=== PATIENT | female | born 1945 | race Hispanic/Latino ===

== ENCOUNTER 2020-10-12 19:59 | Inpatient (IN) | payer MEDICARE ==
[~2020-10-12] VITALS: Ht 165.1 cm; Wt 74.8 kg
[2020-10-12 20:38] LABS: BASOPHILS % 0.3 % (0.0-1.0); EOSINOPHILS # (AUTO) 0.2 (0.0-0.4); EOSINOPHILS % 2.8 % (0.0-6.0); HEMATOCRIT 29.2 % (34.2-44.1); HEMOGLOBIN 9.9 g/dL (12.0-16.0); LYMPHOCYTES # (AUTO) 0.7 (1.0-3.2); LYMPHOCYTES % 11.2 % (18.0-39.1); MEAN CORPUSCULAR HEMOGLOBIN 31.5 pg (28-32); MEAN CORPUSCULAR HGB CONC 33.9 g/dL (31-35); MONOCYTES # (AUTO) 0.7 (0.2-0.8); MONOCYTES % 10.9 % (4.4-11.3); NEUTROPHILS # (AUTO) 4.4 (2.1-6.9); NEUTROPHILS % 72.5 % (38.7-80.0); PLATELET COUNT 146 x10e3/uL (140-360); RED BLOOD COUNT 3.14 x10e6/uL (3.6-5.1); RED CELL DISTRIBUTION WIDTH 12.5 % (11.7-14.4)
[2020-10-12 20:55] LABS: ALBUMIN 3.1 g/dL (3.5-5.0); ANION GAP 13.4 mmol/L (8-16); CALCIUM 8.2 mg/dL (8.4-10.2); CREATININE, SERUM 1.26 mg/dL (0.57-1.11); POTASSIUM 4.4 mmol/L (3.5-5.1)
[2020-10-12 21:00] LABS: CREATINE KINASE MB 1.6 ng/mL (0-5.0)
[2020-10-12] MEDS ORDERED: SODIUM CHLORIDE 0.9% 1000ML 1,000 ML IV SCH ×2 (21:15→21:30)
[2020-10-12] MEDS ORDERED: SODIUM CHLORIDE 0.9% 50ML 50 ML ONE (21:28)
[2020-10-12] MEDS ORDERED: IOPAMIDOL 370 MG/ML 200 ML INFUS..BTL INJ ONE (21:28)
[2020-10-12] MEDS ORDERED: DEXTROSE 50% SYRINGE 50 ML IV PRN (22:00)
[2020-10-12 22:29] LABS: CLARITY,URINE CLEAR (CLEAR); COLOR,URINE YELLOW (YELLOW); LEUKOCYTE ESTERASE ,URINE NEGATIVE (NEGATIVE); NITRITE,URINE NEGATIVE (NEGATIVE)
[2020-10-12 22:30] LABS: KETONES,URINE 1+ (NEGATIVE); PROTEIN,URINE DIPSTICK NEGATIVE (NEGATIVE); URINE UROBILINOGEN 0.2 mg/dL (0.2 - 1)
[2020-10-12 22:37] LABS: BACTERIA,URINE FEW /HPF; EPITHELIAL CELLS,URINE MODERATE /LPF; RBC,URINE 0-5 /HPF (0-5)
[2020-10-12 23:30] VITALS: BP 149/66
[2020-10-13] VITALS (8 sets, daily range): BP systolic 137–150; BP diastolic 56–66
[2020-10-13] MEDS ORDERED: LIPITOR10 MG PO (00:36)
[2020-10-13] MEDS ORDERED: NIFEDIPINE ER30 M1 PO (00:36)
[2020-10-13] MEDS ORDERED: PANTOPRAZOLE SO40 MG PO (00:36)
[2020-10-13] MEDS ORDERED: BENICAR20 MG PO (00:36)
[2020-10-13] MEDS ORDERED: CARAFATE1 GM/10 ML PO (00:36)
[2020-10-13] MEDS ORDERED: NEOMYCIN SULFA500 MG PO (00:36)
[2020-10-13] MEDS ORDERED: CARAFATE1 GM PO (00:36)
[2020-10-13] MEDS ORDERED: KEFLEX125 MG/5 M PO (00:36)
[2020-10-13] MEDS ORDERED: OLMESARTAN-HCT1 EAC2 PO (00:39)
[2020-10-13 04:48] LABS: BASOPHILS % 0.5 % (0.0-1.0); EOSINOPHILS # (AUTO) 0.3 (0.0-0.4); EOSINOPHILS % 3.9 % (0.0-6.0); HEMOGLOBIN 10.2 g/dL (12.0-16.0); LYMPHOCYTES # (AUTO) 0.9 (1.0-3.2); LYMPHOCYTES % 13.8 % (18.0-39.1); MEAN CORPUSCULAR HEMOGLOBIN 31.7 pg (28-32); MEAN CORPUSCULAR VOLUME 93.2 fL (81-99); MONOCYTES # (AUTO) 0.7 (0.2-0.8); MONOCYTES % 10.4 % (4.4-11.3); NEUTROPHILS # (AUTO) 4.6 (2.1-6.9); NEUTROPHILS % 69.1 % (38.7-80.0); PLATELET COUNT 142 x10e3/uL (140-360); RED BLOOD COUNT 3.22 x10e6/uL (3.6-5.1); RED CELL DISTRIBUTION WIDTH 12.3 % (11.7-14.4)
[2020-10-13 05:12] LABS: ANION GAP 12.3 mmol/L (8-16); CALCIUM 8.2 mg/dL (8.4-10.2); CREATININE, SERUM 0.94 mg/dL (0.57-1.11); POTASSIUM 4.3 mmol/L (3.5-5.1)
[2020-10-13 05:37] LABS: CREATINE KINASE MB 1.6 ng/mL (0-5.0)
[2020-10-13] MEDS: INSULIN REGULAR, HUMAN 100 UNIT/1 ML SQ SCH ×2 (07:30→12:30)
[2020-10-13 08:32] LABS: ANION GAP 12.2 mmol/L (8-16); CALCIUM 8.4 mg/dL (8.4-10.2); CREATININE, SERUM 0.9 mg/dL (0.57-1.11); POTASSIUM 4.2 mmol/L (3.5-5.1)
[2020-10-13 08:55] LABS: THYROID STIMULATING HORMONE 2.621 uIU/mL (0.350-4.940)
[2020-10-13 14:47] LABS: CREATINE KINASE MB 1.3 ng/mL (0-5.0)
[2020-10-13] MEDS ORDERED: HUMULIN-R100 UNITS/ SQ (15:19)
[2020-10-13 16:30] LABS: ANION GAP 12.3 mmol/L (8-16); CALCIUM 8.2 mg/dL (8.4-10.2); CREATININE, SERUM 0.91 mg/dL (0.57-1.11); POTASSIUM 4.3 mmol/L (3.5-5.1)
[2020-10-13] MEDS: INSULIN LISPRO 100 UNIT/1 ML 3ML VIAL SQ SCH ×2 (16:30→21:00)
[2020-10-13] MEDS: OLMESARTAN 20 MG TAB PO SCH (17:30)
[2020-10-13] MEDS: SODIUM CHLORIDE 1 GM TAB PO SCH (17:30)
[2020-10-13] MEDS: NIFEDIPINE CR 30 MG TAB PO SCH (17:30)
[2020-10-13] MEDS: ATORVASTATIN 20 MG TAB PO SCH (21:00)
[2020-10-13] MEDS: ENOXAPARIN SOD INJ 40 MG/0.4 ML SYR SC SCH (21:00)
[2020-10-14] VITALS (8 sets, daily range): BP systolic 107–133; BP diastolic 46–58
[2020-10-14 05:01] LABS: BASOPHILS % 0.3 % (0.0-1.0); EOSINOPHILS # (AUTO) 0.4 (0.0-0.4); EOSINOPHILS % 6.9 % (0.0-6.0); HEMATOCRIT 27.1 % (34.2-44.1); HEMOGLOBIN 9.1 g/dL (12.0-16.0); LYMPHOCYTES # (AUTO) 1.3 (1.0-3.2); LYMPHOCYTES % 20.5 % (18.0-39.1); MEAN CORPUSCULAR HEMOGLOBIN 31.4 pg (28-32); MEAN CORPUSCULAR HGB CONC 33.6 g/dL (31-35); MEAN CORPUSCULAR VOLUME 93.4 fL (81-99); MONOCYTES # (AUTO) 0.7 (0.2-0.8); MONOCYTES % 11.1 % (4.4-11.3); NEUTROPHILS # (AUTO) 3.5 (2.1-6.9); NEUTROPHILS % 57.8 % (38.7-80.0); PLATELET COUNT 148 x10e3/uL (140-360); RED CELL DISTRIBUTION WIDTH 12.7 % (11.7-14.4)
[2020-10-14 05:21] LABS: ANION GAP 11.4 mmol/L (8-16); CALCIUM 8.3 mg/dL (8.4-10.2); CREATININE, SERUM 0.85 mg/dL (0.57-1.11); POTASSIUM 4.4 mmol/L (3.5-5.1)
[2020-10-14] MEDS: INSULIN LISPRO 100 UNIT/1 ML 3ML VIAL SQ SCH ×4 (08:17→20:08)
[2020-10-14] MEDS: SODIUM CHLORIDE 1 GM TAB PO SCH ×2 (08:38→16:53)
[2020-10-14] MEDS: NIFEDIPINE CR 30 MG TAB PO SCH (08:38)
[2020-10-14] MEDS: OLMESARTAN 20 MG TAB PO SCH (08:40)
[2020-10-14] MEDS ORDERED: LACTULOSE SYRUP 20 GM/30 ML UDC PO PRN (14:30)
[2020-10-14] MEDS ORDERED: LACTULOSE SYRUP 20 GM/30 ML UDC PO ONE (15:00)
[2020-10-14] MEDS: ENOXAPARIN SOD INJ 40 MG/0.4 ML SYR SC SCH (16:53)
[2020-10-14] MEDS: ATORVASTATIN 20 MG TAB PO SCH (20:08)
[2020-10-15] VITALS (8 sets, daily range): BP systolic 115–136; BP diastolic 40–67
[2020-10-15 05:43] LABS: ANION GAP 11.4 mmol/L (8-16); CALCIUM 8.1 mg/dL (8.4-10.2); CREATININE, SERUM 0.8 mg/dL (0.57-1.11); POTASSIUM 4.4 mmol/L (3.5-5.1)
[2020-10-15] MEDS: INSULIN LISPRO 100 UNIT/1 ML 3ML VIAL SQ SCH ×4 (07:30→20:20)
[2020-10-15] MEDS: NIFEDIPINE CR 30 MG TAB PO SCH (08:17)
[2020-10-15] MEDS: SODIUM CHLORIDE 1 GM TAB PO SCH ×2 (08:17→17:53)
[2020-10-15] MEDS: OLMESARTAN 20 MG TAB PO SCH (08:17)
[2020-10-15] MEDS ORDERED: BISACODYL 5 MG TAB EC PO PRN (09:45)
[2020-10-15 09:47] LABS: MAGNESIUM 1.2 MG/DL (1.3-2.1)
[2020-10-15] MEDS: CIPROFLOXACIN 250 MG TAB PO SCH ×2 (10:27→17:53)
[2020-10-15] MEDS ORDERED: MAGNESIUM SULFATE 2GM/50ML 50 ML IV ONE (11:00)
[2020-10-15] MEDS ORDERED: SODIUM CHLORIDE 0.9% 250ML 250 ML ONE (11:05)
[2020-10-15] MEDS ORDERED: BISACODYL 5 MG TAB EC PO ONE (11:30)
[2020-10-15] MEDS: ENOXAPARIN SOD INJ 40 MG/0.4 ML SYR SC SCH (17:53)
[2020-10-15] MEDS ORDERED: CITRATE OF MAGNESIA 300ML BOTTLE PO ONE (18:30)
[2020-10-15] MEDS: ATORVASTATIN 20 MG TAB PO SCH (21:05)
[2020-10-16] VITALS (8 sets, daily range): BP systolic 118–131; BP diastolic 50–54
[2020-10-16 05:57] LABS: ANION GAP 14.8 mmol/L (8-16); CREATININE, SERUM 0.89 mg/dL (0.57-1.11); POTASSIUM 4.8 mmol/L (3.5-5.1)
[2020-10-16] MEDS: INSULIN LISPRO 100 UNIT/1 ML 3ML VIAL SQ SCH ×4 (07:30→21:00)
[2020-10-16] MEDS: NIFEDIPINE CR 30 MG TAB PO SCH (08:22)
[2020-10-16] MEDS: SODIUM CHLORIDE 1 GM TAB PO SCH ×2 (08:22→17:50)
[2020-10-16] MEDS: CIPROFLOXACIN 250 MG TAB PO SCH ×2 (08:22→17:50)
[2020-10-16] MEDS: OLMESARTAN 20 MG TAB PO SCH (08:22)
[2020-10-16] MEDS ORDERED: BISACODYL 10 MG SUPP PR PRN (10:00)
[2020-10-16] MEDS: SODIUM BICARBONATE 650 MG TAB PO SCH (17:50)
[2020-10-16] MEDS: ENOXAPARIN SOD INJ 40 MG/0.4 ML SYR SC SCH (17:51)
[2020-10-16] MEDS: ATORVASTATIN 20 MG TAB PO SCH (21:30)
[2020-10-17] VITALS (9 sets, daily range): BP systolic 102–136; BP diastolic 45–84
[2020-10-17 06:09] LABS: ANION GAP 11.6 mmol/L (8-16); CALCIUM 8.2 mg/dL (8.4-10.2); CREATININE, SERUM 1.17 mg/dL (0.57-1.11); MAGNESIUM 1.8 MG/DL (1.3-2.1); PHOSPHORUS 3.4 MG/DL (2.3-4.7); POTASSIUM 4.6 mmol/L (3.5-5.1)
[2020-10-17] MEDS: INSULIN LISPRO 100 UNIT/1 ML 3ML VIAL SQ SCH ×4 (07:30→20:50)
[2020-10-17] MEDS: OLMESARTAN 20 MG TAB PO SCH (10:13)
[2020-10-17] MEDS: CIPROFLOXACIN 250 MG TAB PO SCH ×2 (10:14→16:58)
[2020-10-17] MEDS: NIFEDIPINE CR 30 MG TAB PO SCH (10:14)
[2020-10-17] MEDS: SODIUM BICARBONATE 650 MG TAB PO SCH ×2 (10:15→16:58)
[2020-10-17] MEDS: SODIUM CHLORIDE 1 GM TAB PO SCH ×2 (10:15→16:58)
[2020-10-17] MEDS: ENOXAPARIN SOD INJ 40 MG/0.4 ML SYR SC SCH (16:58)
[2020-10-17] MEDS: ATORVASTATIN 20 MG TAB PO SCH (20:47)
[2020-10-18 05:06] VITALS: BP 131/55
[2020-10-18 06:22] LABS: ANION GAP 12.7 mmol/L (8-16); CALCIUM 8.3 mg/dL (8.4-10.2); CREATININE, SERUM 1.08 mg/dL (0.57-1.11); POTASSIUM 4.7 mmol/L (3.5-5.1)
[2020-10-18] MEDS: INSULIN LISPRO 100 UNIT/1 ML 3ML VIAL SQ SCH ×3 (07:30→16:03)
[2020-10-18 07:41] VITALS: BP 135/52
[2020-10-18 07:50] VITALS: BP 135/52
[2020-10-18] MEDS: CIPROFLOXACIN 250 MG TAB PO SCH (08:38)
[2020-10-18] MEDS: OLMESARTAN 20 MG TAB PO SCH (08:38)
[2020-10-18] MEDS: NIFEDIPINE CR 30 MG TAB PO SCH (08:39)
[2020-10-18] MEDS: SODIUM BICARBONATE 650 MG TAB PO SCH ×2 (08:39→16:25)
[2020-10-18] MEDS: SODIUM CHLORIDE 1 GM TAB PO SCH ×2 (08:39→16:25)
[2020-10-18] MEDS ORDERED: MEROPENEM 500 MG in SODIUM CHLORIDE 0.9% 50ML 50 ML IV SCH (12:00)
[2020-10-18 16:23] VITALS: BP 117/52
[2020-10-18] MEDS: ENOXAPARIN SOD INJ 40 MG/0.4 ML SYR SC SCH (16:25)
== END 2020-10-18 18:07 | disposition home or self-care (01) | DRG 682 ==
LOC: ER 20:12 → ERHOLD 21:51 → MED/SURG 23:31
PROVIDERS: ADMIT Internal Medicine; ATTEND Internal Medicine
DX: N17.9 Acute kidney failure, unspecified (principal); G93.41 Metabolic encephalopathy; E87.1 Hypo-osmolality and hyponatremia; N39.0 Urinary tract infection, site not specified; I10 Essential (primary) hypertension; E11.9 Type 2 diabetes mellitus without complications; E78.5 Hyperlipidemia, unspecified; Z88.8 Allergy status to other drugs, medicaments and biological substances; R33.9 Retention of urine, unspecified; R53.81 Other malaise; E83.42 Hypomagnesemia; K59.00 Constipation, unspecified; B96.5 Pseudomonas (aeruginosa) (mallei) (pseudomallei) as the cause of diseases classified elsewhere
CPT/HCPCS: 36415; 70450; 74177; 80048; 80053; 81001; 82550; 82553; 82948; 83735; 83880; 83935; 84100; 84295; 84300; 84443; 84484; 85025; 87086; 87186; 93005; 97139; 99284; J1650; J1817; J2185; J3475; J7030; J7050; Q9967

== ENCOUNTER 2020-11-04 15:45 | Inpatient (IN) | payer MEDICARE, OTHER ==
[~2020-11-04] VITALS: Ht 154.9 cm; Wt 61.2 kg
[~2020-11-04 15:45] MED LIST: BENICAR20 MG PO; CARAFATE1 GM PO; CARAFATE1 GM/10 ML PO; HUMULIN-R100 UNITS/ SQ; KEFLEX125 MG/5 M PO; LIPITOR10 MG PO; NEOMYCIN SULFA500 MG PO; NIFEDIPINE ER30 M1 PO; OLMESARTAN-HCT1 EAC2 PO; PANTOPRAZOLE SO40 MG PO
[2020-11-04] MEDS ORDERED: ONDANSETRON HCL INJ 2MG/ML 2ML 2 MG/ML VIAL IV NR (16:00)
[2020-11-04] MEDS ORDERED: SODIUM CHLORIDE 0.9% 1000ML 1,000 ML IV STA (16:00)
[2020-11-04 16:29] LABS: BASOPHILS % 0.1 % (0.0-1.0); EOSINOPHILS % 0.3 % (0.0-6.0); HEMATOCRIT 30.2 % (34.2-44.1); HEMOGLOBIN 10.5 g/dL (12.0-16.0); LYMPHOCYTES # (AUTO) 1.7 (1.0-3.2); MEAN CORPUSCULAR HEMOGLOBIN 31.1 pg (28-32); MEAN CORPUSCULAR HGB CONC 34.8 g/dL (31-35); MEAN CORPUSCULAR VOLUME 89.3 fL (81-99); MONOCYTES % 9.8 % (4.4-11.3); NEUTROPHILS # (AUTO) 7.3 (2.1-6.9); NEUTROPHILS % 71.6 % (38.7-80.0); PLATELET COUNT 255 x10e3/uL (140-360); RED BLOOD COUNT 3.38 x10e6/uL (3.6-5.1); RED CELL DISTRIBUTION WIDTH 12.1 % (11.7-14.4)
[2020-11-04 16:46] LABS: ALBUMIN 3.5 g/dL (3.5-5.0); ALBUMIN/GLOBULIN RATIO 1.2 (0.8-2.0); ANION GAP 16.1 mmol/L (8-16); CALCIUM 7.6 mg/dL (8.4-10.2); CREATININE, SERUM 1.3 mg/dL (0.57-1.11); POTASSIUM 3.1 mmol/L (3.5-5.1)
[2020-11-04 16:53] LABS: CREATINE KINASE MB 0.9 ng/mL (0-5.0)
[2020-11-04 16:59] LABS: MAGNESIUM 1.1 MG/DL (1.3-2.1)
[2020-11-04] MEDS ORDERED: MAGNESIUM SULFATE 2GM/50ML 50 ML IV ONE (17:00)
[2020-11-04] MEDS ORDERED: POTASSIUM CHLORIDE 20 MEQ TAB CR PO STA (17:00)
[2020-11-04] MEDS ORDERED: SODIUM CHLORIDE 0.9% 1000ML 1,000 ML IV SCH (19:30)
[2020-11-04 20:00] VITALS: BP 130/58
[2020-11-04] MEDS ORDERED: ACETAMINOPHEN 325 MG TAB PO PRN (23:00)
[2020-11-04] MEDS ORDERED: ONDANSETRON HCL INJ 2MG/ML 2ML 2 MG/ML VIAL IV PRN (23:00)
[2020-11-05] VITALS (8 sets, daily range): BP systolic 101–142; BP diastolic 35–64
[2020-11-05 05:42] LABS: BASOPHILS % 0.1 % (0.0-1.0); EOSINOPHILS # (AUTO) 0.1 (0.0-0.4); EOSINOPHILS % 0.7 % (0.0-6.0); HEMATOCRIT 26.1 % (34.2-44.1); HEMOGLOBIN 9.2 g/dL (12.0-16.0); LYMPHOCYTES # (AUTO) 1.9 (1.0-3.2); LYMPHOCYTES % 21.9 % (18.0-39.1); MEAN CORPUSCULAR HEMOGLOBIN 31.6 pg (28-32); MEAN CORPUSCULAR HGB CONC 35.2 g/dL (31-35); MEAN CORPUSCULAR VOLUME 89.7 fL (81-99); MONOCYTES # (AUTO) 0.8 (0.2-0.8); MONOCYTES % 9.3 % (4.4-11.3); NEUTROPHILS # (AUTO) 5.7 (2.1-6.9); NEUTROPHILS % 66.2 % (38.7-80.0); PLATELET COUNT 215 x10e3/uL (140-360); RED BLOOD COUNT 2.91 x10e6/uL (3.6-5.1); RED CELL DISTRIBUTION WIDTH 12.1 % (11.7-14.4)
[2020-11-05 06:20] LABS: ALBUMIN/GLOBULIN RATIO 1.2 (0.8-2.0); ANION GAP 13.5 mmol/L (8-16); CALCIUM 7.6 mg/dL (8.4-10.2); CREATININE, SERUM 1.08 mg/dL (0.57-1.11); MAGNESIUM 1.6 MG/DL (1.3-2.1); PHOSPHORUS 3.2 MG/DL (2.3-4.7); POTASSIUM 3.5 mmol/L (3.5-5.1)
[2020-11-05 07:02] LABS: CLARITY,URINE CLEAR (CLEAR); COLOR,URINE YELLOW (YELLOW)
[2020-11-05 07:03] LABS: LEUKOCYTE ESTERASE ,URINE TRACE (NEGATIVE)
[2020-11-05 07:04] LABS: KETONES,URINE NEGATIVE (NEGATIVE); NITRITE,URINE NEGATIVE (NEGATIVE); PROTEIN,URINE DIPSTICK TRACE (NEGATIVE); URINE UROBILINOGEN 0.2 mg/dL (0.2 - 1)
[2020-11-05 07:19] LABS: FREE T4 (FREE THYROXINE) 1.15 ng/dL (0.8-1.8); THYROID STIMULATING HORMONE 2.725 uIU/mL (0.350-4.940)
[2020-11-05 07:20] LABS: BACTERIA,URINE RARE /HPF; EPITHELIAL CELLS,URINE RARE /LPF; WBC,URINE (MAN) 21-50 /HPF (0-5)
[2020-11-05 07:21] LABS: YEAST,URINE MODERATE
[2020-11-05 07:26] LABS: CREATININE,URINE RANDOM 53.54 mg/dL (47-110)
[2020-11-05 10:16] LABS: ANION GAP 13.7 mmol/L (8-16); CALCIUM 7.8 mg/dL (8.4-10.2); CREATININE, SERUM 1.05 mg/dL (0.57-1.11); POTASSIUM 3.7 mmol/L (3.5-5.1)
[2020-11-05] MEDS ORDERED: DEXTROSE 50% SYRINGE 50 ML IV PRN (11:00)
[2020-11-05] MEDS ORDERED: MAGNESIUM SULFATE 2GM/50ML 50 ML IV ONE (12:00)
[2020-11-05] MEDS: SODIUM CHLORIDE 1 GM TAB PO SCH ×2 (12:23→21:45)
[2020-11-05] MEDS: INSULIN REGULAR, HUMAN 100 UNIT/1 ML SQ SCH ×3 (12:24→21:00)
[2020-11-05] MEDS: SODIUM CHLORIDE 0.9% 1000ML 1,000 ML IV SCH (12:24)
[2020-11-05] MEDS: NIFEDIPINE CR 30 MG TAB PO SCH (12:24)
[2020-11-05 14:52] LABS: ANION GAP 12.5 mmol/L (8-16); CALCIUM 7.9 mg/dL (8.4-10.2); CREATININE, SERUM 1.05 mg/dL (0.57-1.11); POTASSIUM 3.5 mmol/L (3.5-5.1)
[2020-11-05 18:55] LABS: ANION GAP 13.6 mmol/L (8-16); CALCIUM 7.7 mg/dL (8.4-10.2); CREATININE, SERUM 1.18 mg/dL (0.57-1.11); POTASSIUM 3.6 mmol/L (3.5-5.1)
[2020-11-05] MEDS: HEPARIN SOD (PORCINE) 5,000 UNIT/ML VIAL SC SCH (21:47)
[2020-11-06] VITALS (8 sets, daily range): BP systolic 106–152; BP diastolic 39–70
[2020-11-06 05:08] LABS: ANION GAP 11.5 mmol/L (8-16); CALCIUM 8.1 mg/dL (8.4-10.2); CREATININE, SERUM 0.97 mg/dL (0.57-1.11); POTASSIUM 3.5 mmol/L (3.5-5.1)
[2020-11-06] MEDS: SODIUM CHLORIDE 0.9% 1000ML 1,000 ML IV SCH ×3 (05:53→17:25)
[2020-11-06] MEDS: INSULIN REGULAR, HUMAN 100 UNIT/1 ML SQ SCH ×4 (07:30→20:41)
[2020-11-06] MEDS: PANTOPRAZOLE SOD 40 MG TABEC PO SCH (09:02)
[2020-11-06] MEDS: SODIUM CHLORIDE 1 GM TAB PO SCH ×3 (09:02→20:51)
[2020-11-06] MEDS: ATORVASTATIN 20 MG TAB PO SCH (09:02)
[2020-11-06] MEDS: SUCRALFATE 1 GM TAB PO SCH (09:02)
[2020-11-06] MEDS: HEPARIN SOD (PORCINE) 5,000 UNIT/ML VIAL SC SCH ×2 (09:02→20:53)
[2020-11-06] MEDS: NIFEDIPINE CR 30 MG TAB PO SCH (09:02)
[2020-11-06 10:27] LABS: ANION GAP 15.8 mmol/L (8-16); CREATININE, SERUM 0.95 mg/dL (0.57-1.11); POTASSIUM 3.8 mmol/L (3.5-5.1)
[2020-11-06 15:12] LABS: ANION GAP 10.8 mmol/L (8-16); CALCIUM 7.6 mg/dL (8.4-10.2); CREATININE, SERUM 0.94 mg/dL (0.57-1.11); POTASSIUM 3.8 mmol/L (3.5-5.1)
[2020-11-06] MEDS: FLUCONAZOLE 100 MG TAB PO SCH (16:53)
[2020-11-06 18:33] LABS: ANION GAP 11.8 mmol/L (8-16); CALCIUM 7.7 mg/dL (8.4-10.2); CREATININE, SERUM 0.98 mg/dL (0.57-1.11); POTASSIUM 3.8 mmol/L (3.5-5.1)
[2020-11-07] VITALS (8 sets, daily range): BP systolic 107–147; BP diastolic 46–56
[2020-11-07 06:01] LABS: ANION GAP 8.6 mmol/L (8-16); CALCIUM 7.7 mg/dL (8.4-10.2); CREATININE, SERUM 0.81 mg/dL (0.57-1.11); POTASSIUM 3.6 mmol/L (3.5-5.1)
[2020-11-07] MEDS: SODIUM CHLORIDE 0.9% 1000ML 1,000 ML IV SCH ×2 (06:32→13:15)
[2020-11-07] MEDS: SUCRALFATE 1 GM TAB PO SCH (07:30)
[2020-11-07] MEDS: INSULIN REGULAR, HUMAN 100 UNIT/1 ML SQ SCH ×4 (07:30→21:00)
[2020-11-07] MEDS: PANTOPRAZOLE SOD 40 MG TABEC PO SCH (09:00)
[2020-11-07] MEDS: SODIUM CHLORIDE 1 GM TAB PO SCH ×3 (09:00→21:00)
[2020-11-07] MEDS: FLUCONAZOLE 100 MG TAB PO SCH (09:00)
[2020-11-07] MEDS: HEPARIN SOD (PORCINE) 5,000 UNIT/ML VIAL SC SCH ×2 (09:00→21:00)
[2020-11-07] MEDS: NIFEDIPINE CR 30 MG TAB PO SCH (09:00)
[2020-11-07] MEDS: ATORVASTATIN 20 MG TAB PO SCH (09:00)
[2020-11-07 10:33] LABS: ANION GAP 8.6 mmol/L (8-16); CALCIUM 7.6 mg/dL (8.4-10.2); CREATININE, SERUM 0.81 mg/dL (0.57-1.11); POTASSIUM 3.6 mmol/L (3.5-5.1)
[2020-11-07] MEDS ORDERED: SODIUM CHLORIDE 0.9% 50ML 50 ML ONE (13:59)
[2020-11-07 14:51] LABS: ANION GAP 9.1 mmol/L (8-16); CALCIUM 7.6 mg/dL (8.4-10.2); CREATININE, SERUM 0.78 mg/dL (0.57-1.11); POTASSIUM 4.1 mmol/L (3.5-5.1)
[2020-11-07 15:20] LABS: % IRON SATURATION 32 % (15-50); IRON 63 ug/dL (50-170); TOTAL IRON BINDING CAPACITY 200 ug/dL (261-478); TRANSFERRIN 143 mg/dL (180-382)
[2020-11-07] MEDS: MEROPENEM 500 MG in SODIUM CHLORIDE 0.9% 50ML 50 ML IV SCH (17:11)
[2020-11-07 19:40] LABS: ANION GAP 11.4 mmol/L (8-16); CALCIUM 7.6 mg/dL (8.4-10.2); CREATININE, SERUM 0.81 mg/dL (0.57-1.11); POTASSIUM 4.4 mmol/L (3.5-5.1)
[2020-11-08] MEDS: MEROPENEM 500 MG in SODIUM CHLORIDE 0.9% 50ML 50 ML IV SCH ×3 (01:00→17:18)
[2020-11-08] MEDS: SODIUM CHLORIDE 0.9% 1000ML 1,000 ML IV SCH ×3 (01:00→23:10)
[2020-11-08 01:21] VITALS: BP 120/49
[2020-11-08 03:03] LABS: ANION GAP 8.7 mmol/L (8-16); CALCIUM 7.7 mg/dL (8.4-10.2); CREATININE, SERUM 0.74 mg/dL (0.57-1.11); POTASSIUM 3.7 mmol/L (3.5-5.1)
[2020-11-08 05:11] LABS: ANION GAP 8.8 mmol/L (8-16); CALCIUM 7.4 mg/dL (8.4-10.2); CREATININE, SERUM 0.74 mg/dL (0.57-1.11); POTASSIUM 3.8 mmol/L (3.5-5.1)
[2020-11-08 06:11] VITALS: BP 123/45
[2020-11-08] MEDS: INSULIN REGULAR, HUMAN 100 UNIT/1 ML SQ SCH ×4 (07:30→21:00)
[2020-11-08] MEDS: SUCRALFATE 1 GM TAB PO SCH (07:30)
[2020-11-08 08:45] VITALS: BP 123/45
[2020-11-08] MEDS: FLUCONAZOLE 100 MG TAB PO SCH (08:59)
[2020-11-08] MEDS: NIFEDIPINE CR 30 MG TAB PO SCH (08:59)
[2020-11-08] MEDS: ATORVASTATIN 20 MG TAB PO SCH (08:59)
[2020-11-08] MEDS: SODIUM CHLORIDE 1 GM TAB PO SCH ×3 (09:00→21:00)
[2020-11-08] MEDS: PANTOPRAZOLE SOD 40 MG TABEC PO SCH (09:00)
[2020-11-08] MEDS: HEPARIN SOD (PORCINE) 5,000 UNIT/ML VIAL SC SCH ×2 (09:00→21:00)
[2020-11-08 11:05] LABS: ANION GAP 8.6 mmol/L (8-16); CALCIUM 7.4 mg/dL (8.4-10.2); CREATININE, SERUM 0.72 mg/dL (0.57-1.11); POTASSIUM 3.6 mmol/L (3.5-5.1)
[2020-11-08 11:39] VITALS: BP 183/67
[2020-11-08 15:13] LABS: ANION GAP 10.9 mmol/L (8-16); CALCIUM 7.6 mg/dL (8.4-10.2); CREATININE, SERUM 0.77 mg/dL (0.57-1.11); POTASSIUM 3.9 mmol/L (3.5-5.1)
[2020-11-08 19:10] LABS: ANION GAP 11.8 mmol/L (8-16); CALCIUM 7.6 mg/dL (8.4-10.2); CREATININE, SERUM 0.81 mg/dL (0.57-1.11); POTASSIUM 3.8 mmol/L (3.5-5.1)
[2020-11-08 20:00] VITALS: BP 138/41
[2020-11-09] VITALS: BP 128/51
[2020-11-09] MEDS: SODIUM CHLORIDE 0.9% 1000ML 1,000 ML IV SCH (00:30)
[2020-11-09] MEDS: MEROPENEM 500 MG in SODIUM CHLORIDE 0.9% 50ML 50 ML IV SCH ×2 (01:23→10:00)
[2020-11-09 04:00] VITALS: BP 137/53
[2020-11-09] MEDS: INSULIN REGULAR, HUMAN 100 UNIT/1 ML SQ SCH ×2 (07:30→11:30)
[2020-11-09 08:00] VITALS: BP 128/54
[2020-11-09] MEDS: SUCRALFATE 1 GM TAB PO SCH (08:30)
[2020-11-09] MEDS: FLUCONAZOLE 100 MG TAB PO SCH (09:00)
[2020-11-09] MEDS: PANTOPRAZOLE SOD 40 MG TABEC PO SCH (09:00)
[2020-11-09] MEDS: HEPARIN SOD (PORCINE) 5,000 UNIT/ML VIAL SC SCH (09:00)
[2020-11-09] MEDS: ATORVASTATIN 20 MG TAB PO SCH (09:00)
[2020-11-09] MEDS: SODIUM CHLORIDE 1 GM TAB PO SCH (09:00)
[2020-11-09] MEDS: NIFEDIPINE CR 30 MG TAB PO SCH (09:00)
[2020-11-09 10:09] VITALS: BP 128/54
[2020-11-09 13:13] VITALS: BP 138/55
[2020-11-09] MEDS ORDERED: SODIUM CHLORIDE1 GM PO (13:46)
[2020-11-09] MEDS ORDERED: DIFLUCAN100 MG PO (13:51)
[2020-11-09 16:38] VITALS: BP 133/52
== END 2020-11-09 17:30 | disposition home or self-care (01) | DRG 641 ==
LOC: ER 16:27 → ERHOLD 17:33 → MED/SURG2 19:42
PROVIDERS: ADMIT Internal Medicine; ATTEND Internal Medicine
PROC: 05HY33Z Insertion of Infusion Device into Upper Vein, Percutaneous Approach (ICD-10-PCS; principal; 2020-11-09)
DX: E87.1 Hypo-osmolality and hyponatremia (principal); B37.49 Other urogenital candidiasis; E86.0 Dehydration; T46.5X5A Adverse effect of other antihypertensive drugs, initial encounter; E11.9 Type 2 diabetes mellitus without complications; E87.6 Hypokalemia; E83.42 Hypomagnesemia; E78.00 Pure hypercholesterolemia, unspecified; T50.2X5A Adverse effect of carbonic-anhydrase inhibitors, benzothiadiazides and other diuretics, initial encounter; Y92.009 Unspecified place in unspecified non-institutional (private) residence as the place of occurrence of the external cause; L89.90 Pressure ulcer of unspecified site, unspecified stage; B96.1 Klebsiella pneumoniae [K. pneumoniae] as the cause of diseases classified elsewhere; Z20.822 Contact with and (suspected) exposure to COVID-19; R33.9 Retention of urine, unspecified
CPT/HCPCS: 36415; 70450; 71045; 80048; 80053; 81001; 82550; 82553; 82570; 82947; 82948; 83540; 83735; 83935; 84100; 84295; 84300; 84439; 84443; 84466; 84484; 84520; 85025; 87086; 93005; 99251; 99284; J1644; J2185; J2405; J3475; J7030; U0002

== ENCOUNTER 2020-11-15 08:30 | Emergency (ER) | payer MEDICARE, OTHER ==
[~2020-11-15] VITALS: Ht 154.9 cm; Wt 61.2 kg
[~2020-11-15 08:30] MED LIST changes: +DIFLUCAN100 MG PO; +SODIUM CHLORIDE1 GM PO
[2020-11-15 09:14] LABS: BASOPHILS % 0.2 % (0.0-1.0); EOSINOPHILS # (AUTO) 0.1 (0.0-0.4); EOSINOPHILS % 0.9 % (0.0-6.0); HEMATOCRIT 29.4 % (34.2-44.1); HEMOGLOBIN 9.6 g/dL (12.0-16.0); LYMPHOCYTES # (AUTO) 1.6 (1.0-3.2); LYMPHOCYTES % 12.4 % (18.0-39.1); MEAN CORPUSCULAR HGB CONC 32.7 g/dL (31-35); MONOCYTES # (AUTO) 0.6 (0.2-0.8); MONOCYTES % 4.4 % (4.4-11.3); NEUTROPHILS # (AUTO) 10.5 (2.1-6.9); NEUTROPHILS % 81.3 % (38.7-80.0); PLATELET COUNT 171 x10e3/uL (140-360); RED CELL DISTRIBUTION WIDTH 14.1 % (11.7-14.4)
[2020-11-15 09:30] LABS: INR 0.97; PROTHROMBIN TIME 13.1 seconds (11.9-14.5)
[2020-11-15 09:31] LABS: PARTIAL THROMBOPLASTIN TIME 19.2 seconds (23.8-35.5)
[2020-11-15 10:27] LABS: ALBUMIN 2.8 g/dL (3.5-5.0); ALBUMIN/GLOBULIN RATIO 0.9 (0.8-2.0); ANION GAP 14.3 mmol/L (8-16); CALCIUM 7.3 mg/dL (8.4-10.2); CREATININE, SERUM 0.68 mg/dL (0.57-1.11); POTASSIUM 3.3 mmol/L (3.5-5.1)
[2020-11-15 10:35] LABS: CREATINE KINASE MB 0.8 ng/mL (0-5.0)
[2020-11-15] MEDS ORDERED: MAGNESIUM SULFATE 2GM/50ML 50 ML IV ONE (11:00)
[2020-11-15] MEDS ORDERED: POTASSIUM CHLORIDE 20 MEQ TAB CR PO STA (12:19)
[2020-11-15 12:49] VITALS: BP 122/52
== END 2020-11-15 13:08 | disposition home or self-care (01) ==
LOC: ER 08:35
DX: I49.1 Atrial premature depolarization (principal); E83.42 Hypomagnesemia; E11.9 Type 2 diabetes mellitus without complications; I10 Essential (primary) hypertension; E78.5 Hyperlipidemia, unspecified
CPT/HCPCS: 36415; 71045; 80053; 82550; 82553; 83735; 83880; 84484; 85025; 85610; 85730; 93005; 99284; J3475

== ENCOUNTER → 2021-08-29 | Outpatient (CLI) | payer MEDICARE, OTHER | LOC: RAD 09:39 | PROVIDERS: ATTEND Family Medicine | DX: R06.00 Dyspnea, unspecified (principal); R60.9 Edema, unspecified | CPT/HCPCS: 71046 ==

== ENCOUNTER → 2021-11-14 | Outpatient (CLI) | payer MEDICARE, OTHER | LOC: RAD 11:12 | PROVIDERS: ATTEND Family Medicine | DX: R60.9 Edema, unspecified (principal) | CPT/HCPCS: 93970 ==